=== PATIENT | male | born 1995 | race Two or more races ===

== ENCOUNTER 2025-07-02 21:04 | Emergency (ER) | payer OTHER ==
[~2025-07-02] VITALS: Ht 167.6 cm; Wt 75.0 kg
[2025-07-02] MEDS: IBUPROFEN 400 MG TABLET PO ONE (22:38)
[2025-07-02] MEDS: LIDOCAINE 1% 10 ML VIAL ID ONE (22:39)
[2025-07-02] MEDS: ONDANSETRON 4 MG TABLET PO ONE (22:39)
[2025-07-02] MEDS: ACETAMINOPHEN 500 MG TABLET PO ONE (22:39)
[2025-07-02] MEDS: PERTUSS(ACELL),DIPH,TET/PF 0.5 ML SYRINGE [ADULT] IM. ONE (22:44)
[2025-07-02 23:06] VITALS: BP 119/68; PULSE 74; RESP 19; TEMP 97.3; O2SAT 100
== END 2025-07-02 23:29 ==
LOC: EMS 21:04
DX: S61.012A Laceration without foreign body of left thumb without damage to nail, initial encounter (principal); W26.8XXA Contact with other sharp object(s), not elsewhere classified, initial encounter; Y93.89 Activity, other specified; Y92.89 Other specified places as the place of occurrence of the external cause; Y99.8 Other external cause status
CPT/HCPCS: 99284; 90715; 90471; 12002; Q0162; J3490